=== PATIENT | female | born 1975 | race Caucasian/White ===

== ENCOUNTER → 2019-05-26 | Outpatient (CLI) | payer BC | LOC: RAD 16:06 | DX: M25.472 Effusion, left ankle (principal) ==

== ENCOUNTER → 2019-06-18 | Outpatient (CLI) | payer BC | LOC: RAD 09:12 | DX: N13.30 Unspecified hydronephrosis (principal); Z87.442 Personal history of urinary calculi ==

== ENCOUNTER → 2021-05-22 | Outpatient (REF) | LOC: LAB 11:12 | DX: Z00.00 Encounter for general adult medical examination without abnormal findings (principal); E06.9 Thyroiditis, unspecified; E78.5 Hyperlipidemia, unspecified ==